=== PATIENT | female | born 1955 | race Caucasian/White ===

== ENCOUNTER → 2016-07-25 | Outpatient (CLI) | payer OTHER ==
[2016-07-25 14:24] LABS: HEMOGLOBIN 15.4 gm/dl (12.3-15.3); RED BLOOD COUNT 5.64 M/UL (4.00-5.10); WHITE BLOOD COUNT 11.5 K/UL (4.5-11.0)
[2016-07-25 14:44] LABS: BUN/CREATININE RATIO 23 (0-10)
== END ==
LOC: ECHO 13:00
PROVIDERS: Nurse Practitioner
DX: Z51.12 Encounter for antineoplastic immunotherapy (principal); C50.911 Malignant neoplasm of unspecified site of right female breast; I35.8 Other nonrheumatic aortic valve disorders
CPT/HCPCS: ECHO; 36415; 80053; 85025; 93306